=== PATIENT | female | born 1945 | race Caucasian/White ===

== ENCOUNTER 2019-10-26 06:37 | Day surgery (SDC) | payer MEDICARE, OTHER ==
[2019-10-26] MEDS: BESIFLOXACIN HCL 0.6% OPH SUSP 5 ML BOTTLE OS PRN ×5 (06:50→07:49)
[2019-10-26] MEDS: KETOROLAC TROMETHAMINE 0.45% 4 DROP/0.4 ML DROPERETTE OS PRN ×2 (06:50→06:55)
[2019-10-26] MEDS: TROPICAMIDE 1% OPH SOLN 15 ML OS PRN ×4 (06:50→07:15)
[2019-10-26] MEDS: TETRACAINE HCL 0.5% OPH SOLN 4 ML OS PRN ×4 (06:50→07:30)
[2019-10-26] MEDS: CYCLOPENTOLATE 0.2%/PHENYLEPHRINE 1% OPH SOLN 2 ML OS PRN ×4 (06:50→07:15)
[2019-10-26] MEDS ORDERED: LIDOCAINE 1%/PHENYLEPHRINE 1.5% 1 ML VIAL ONE (06:54)
[2019-10-26] MEDS ORDERED: CHONDR SU A NA/HYALUR INTRAOC KIT (SURGICARE) ONE (06:54)
[2019-10-26] MEDS ORDERED: EPINEPHRINE INJ/PF 1 MG/1 ML AMPULE ONE (06:54)
[2019-10-26] MEDS ORDERED: MIDAZOLAM 2 MG/2 ML INJ ONE (07:04)
[2019-10-26] MEDS: DORZOLAMIDE HCL 2%/TIMOLOL MALEAT 0.5% OPH SOLN 10 ML OS PRN ×2 (07:49)
--- NOTE | 2019-10-26 14:19 | Operative Report ---
Operative Report-[facility] Operative Report: DATE OF SURGERY: 10/26/2019 PREOPERATIVE DIAGNOSIS: Cataracts, left eye POSTOPERATIVE DIAGNOSIS: Cataract, left eye OPERATION: Cataract extraction with insertion of an IOL of the left eye. Intraocular Lens Model: [14.5 sn60wf] Patient underwent surgery for difficulty seeing road signs SURGEON: Edmund Fulton MD ANESTHESIA: Topical PROCEDURE: After obtaining appropriate consent, the patient's left eye was prepped and draped in a sterile fashion as well as the surgeon in the sterile manner and cataract surgery was started. First a paracentesis blade was used to make a side-port incision. Viscoelastic was used to inflate the anterior chamber. Next a 2.4 mm incision was made with a 2.4 mm blade, clear corneal temporarily. A continuous capsulorrhexis was made using a cystotome and Utrata forceps. Following this hydrodissection was carried out to make the lens fully loose and mobile and it was rotated 90 degrees. Following this, a divide and conquer technique was used to phacoemulsify the lens. The remaining cortex was removed with an irrigation/aspiration. Provisc was instilled into the capsular bag to inflate the bag.The intraocular lens was placed. The remaining viscoelastic material was removed with irrigation/aspiration. Following this, the incision was found to be watertight. Besivance and Cosopt was instilled into the eye and a protective shield was placed over the eye. The patient was returned to the postoperative recovery in a stable condition.
== END 2019-10-26 08:26 | disposition home or self-care (01) ==
LOC: SC 06:37
PROVIDERS: ATTEND Internal Medicine
DX: H25.13 Age-related nuclear cataract, bilateral (principal); H40.1131 Primary open-angle glaucoma, bilateral, mild stage; I49.9 Cardiac arrhythmia, unspecified; I38 Endocarditis, valve unspecified; Z79.899 Other long term (current) drug therapy
CPT/HCPCS: 66984; 00142; J2250; J3490 ×2; A9270; J0171; 142

== ENCOUNTER 2020-01-27 07:36 | Day surgery (SDC) | payer MEDICARE, OTHER ==
[~2020-01-27 07:36] MED LIST: CHONDR SU A NA/HYALUR INTRAOC KIT (SURGICARE) ONE; DORZOLAMIDE HCL 2%/TIMOLOL MALEAT 0.5% OPH SOLN 10 ML OD PRN; EPINEPHRINE INJ/PF 1 MG/1 ML AMPULE ONE; FENTANYL CITRATE INJ/PF 100 MCG/2 ML AMPUL ONE; KETOROLAC TROMETHAMINE 0.45% 4 DROP/0.4 ML DROPERETTE OD PRN; LIDOCAINE 1%/PHENYLEPHRINE 1.5% 1 ML VIAL ONE; MIDAZOLAM 2 MG/2 ML INJ ONE; ONDANSETRON HCL INJ/PF 4 MG/2 ML SDV ONE
[2020-01-27] MEDS: BESIFLOXACIN HCL 0.6% OPH SUSP 5 ML BOTTLE OD PRN ×3 (07:50→08:46)
[2020-01-27] MEDS: TROPICAMIDE 1% OPH SOLN 15 ML OD PRN ×3 (07:50→08:10)
[2020-01-27] MEDS: CYCLOPENTOLATE 0.2%/PHENYLEPHRINE 1% OPH SOLN 2 ML OD PRN ×3 (07:50→08:10)
[2020-01-27] MEDS: TETRACAINE HCL 0.5% OPH SOLN 4 ML OD PRN ×3 (07:51→08:25)
--- NOTE | 2020-01-27 11:41 | Operative Report ---
Operative Report-[facility] Operative Report: DATE OF SURGERY: 01-27-20 PREOPERATIVE DIAGNOSIS: Cataract, right eye POSTOPERATIVE DIAGNOSIS: Cataract, right eye OPERATION: Cataract extraction with insertion of an IOL of the right eye. Intraocular Lens Model: [14.5 sn60wf] Underwent surgery for difficulty watching television SURGEON: Edmund Fulton MD ANESTHESIA: Topical PROCEDURE: After obtaining appropriate consent, the patient's right eye was prepped and draped in a sterile fashion as well as the surgeon in the sterile manner and cataract surgery was started. First a paracentesis blade was used to make a side-port incision. Viscoelastic was used to inflate the anterior chamber. Next a 2.4 mm incision was made with a 2.4 mm blade, clear corneal temporarily. A continuous capsulorrhexis was made using a cystotome and Utrata forceps. Following this hydrodissection was carried out to make the anshul fully loose and mobile and it was rotated. Following this, a divide and conquer technique was used to phacoemulsify the anshul. The remaining cortex was removed with an irrigation/aspiration. Provisc was instilled into the capsular bag to inflate the bag. The intraocular lens was placed. The remaining viscoelastic material was removed with irrigation/aspiration. Following this, the incision was found to be watertight. Besivance and Cosopt was instilled into the eye and a protective shield was placed over the eye. The patient was reurned to the postoperative recovery in a stable condition.
== END 2020-01-27 09:18 | disposition home or self-care (01) ==
LOC: SC 07:36
PROVIDERS: ATTEND Internal Medicine
DX: H25.11 Age-related nuclear cataract, right eye (principal); Z79.899 Other long term (current) drug therapy; E66.9 Obesity, unspecified; I48.91 Unspecified atrial fibrillation; G47.33 Obstructive sleep apnea (adult) (pediatric)
CPT/HCPCS: 66984; J2250; J3490 ×2; A9270; J0171; J2405; J3010; V2632

== ENCOUNTER → 2020-07-10 | Outpatient (CLI) | payer MEDICARE, OTHER ==
--- NOTE | 2020-07-11 09:41 | RADIOLOGY REPORT (SQ) ---
EXAM DESCRIPTION: CT ABDOMEN COMBO IMAGES COMPLETED DATE/TIME: 07/10/2020 2:17 pm REASON FOR STUDY: T81.31XA DISRUPTION OF EXTERNAL OPERATION (SURGICAL) WOUND, NEC, INIT T81.31XA DI SRUPTION OF EXTERNAL OPERATION (SURGICAL) WOUND, COMPARISON: None. TECHNIQUE: CT scan of the abdomen performed with and without intravenous contrast, and with oral con trast. Contrasted imaging performed using helical scanning technique with dynamic intravenous contras t injection. Images reviewed with lung, soft tissue, and bone windows. Reconstructed coronal and sagi ttal MPR images reviewed. Delayed images for evaluation of the urinary system also acquired and evalu ated. All images stored on PACS. All CT scanners at this facility use dose modulation, iterative reconstruction, and/or weight based d osing when appropriate to reduce radiation dose to as low as reasonably achievable (ALARA). [facility]: Dose Right [facility]: CareDose [facility]: Dose Right [facility]: Teradose 4D [facility]: Workable CONTRAST TYPE AND DOSE: Contrast/concentration: Isovue 300.00 mmol/ml; Total Contrast Delivered: 100 .0 ml; Total Saline Delivered: 61.0 ml RENAL FUNCTION: Tab 1.1 milligrams/deciliter. RADIATION DOSE: CT Rad equipment meets quality standard of care and radiation dose reduction techniq ues were employed. CTDIvol: 18.8 - 22.6 mGy. DLP: 2088 mGy-cm. LIMITATIONS: None. FINDINGS: NONCONTRASTED IMAGING: No evidence of hepatic steatosis. No nephrolithiasis. POSTCONTRASTED IMAGING: LOWER CHEST: Cardiomegaly. LIVER: The morphology of the liver is noncirrhotic. There are several low-attenuation lesions scatte red throughout both hepatic lobes: The 1.8 x 1.6 cm lesion within segment 6 (image 75 of series 5) briceño s an internal attenuation of less than 20 Hounsfield units and demonstrates no enhancement or washout - this lesion could represent a simple cyst. The subcentimeter lesions in segments 2 and 4A (image 34 series 6) measure less than 1 cm and are considered too small to characterize. The 18 x 14 mm low -attenuation lesion within segment 3 (image 42 of series 6) has an internal attenuation of less than 10 Hounsfield units and demonstrates no enhancement or washout - this lesion could represent a simple cyst. The 18 x 10 mm low-attenuation lesion within segment 7 (image 32 of series 6) has an internal attenuation of greater than 20 Hounsfield units and demonstrates no washout or enhancement. The por janelle veins are patent. SPLEEN: No splenomegaly. The round hypervascular lesions near the splenic hilum (image 17 of series 3) could represent hemangiomas. PANCREAS: No acute gross abnormality of the pancreas. GALLBLADDER: The gallbladder is surgically absent. There is no dilatation of the intra- or extrahepa tic ducts. ADRENAL GLANDS: The diffuse nodular enlargement of the left adrenal gland could represent adenomatous hyperplasia. RIGHT KIDNEY AND URETER: Surgically absent. LEFT KIDNEY AND URETER: The 18 x 13 mm low-attenuation lesion in the upper pole of the kidney (image 47 of series 6) has an internal attenuation of less than 20 Hounsfield units and could represent a si mple cyst. There parapelvic cyst in the lower pole of the kidney (image 76 of series 6). There is n o solid renal mass or hydronephrosis. AORTA AND VESSELS: No aneurysm of the abdominal aorta. The abdominopelvic vasculature is patent. RETROPERITONEUM: No retroperitoneal adenopathy, hemorrhage or mass. BOWEL AND PERITONEAL CAVITY: No acute abnormality. ABDOMINAL WALL: No abdominal wall mass or hernia. BONES: The mixed sclerotic and lucent lesion within the T10 vertebral body could represent a hemangio ma. There is degenerative spondylosis and facet joint arthropathy of the thoracolumbar spine associa yoli with grade 1 anterolisthesis of L4 relative to L5. There is no acute fracture. OTHER: No other findings. IMPRESSION: 1. No acute intra-abdominal abnormality. 2. Status post cholecystectomy and nephrectomy. 3. Low-attenuation hepatic lesions as described above. TECHNICAL DOCUMENTATION: JOB ID: [id number] Quality ID # [id number]: Final reports with documentation of one or more dose reduction techniques (e.g., Au tomated exposure control, adjustment of the mA and/or kV according to patient size, use of iterative reconstruction technique) 2010 [employer]- All Rights Reserved Reading location - IP/workstation name: [email or web address]
== END ==
LOC: RAD 13:36
PROVIDERS: ATTEND Nurse Practitioner Family
DX: T81.31XA Disruption of external operation (surgical) wound, not elsewhere classified, initial encounter (principal); X58.XXXA Exposure to other specified factors, initial encounter; N28.1 Cyst of kidney, acquired; K76.9 Liver disease, unspecified
CPT/HCPCS: 74170; 82565